=== PATIENT | male | born 1985 | race Caucasian/White ===

== ENCOUNTER 2020-05-04 18:45 | Inpatient (IN) | payer BC, OTHER ==
[~2020-05-04] VITALS: Ht 175.3 cm; Wt 113.4 kg
[2020-05-04] MEDS ORDERED: acetaminophen 325mg tablet PO ONE (20:20)
[2020-05-04 20:27] LABS: BASOPHILS % (AUTO) 0.3 % (0-1); EOSINOPHILS # (AUTO) 0.1 X10'3 (0-0.9); EOSINOPHILS % (AUTO) 0.5 % (0-6); HEMATOCRIT 43.4 % (42.0-52.0); HEMOGLOBIN 14.6 g/dl (14.0-17.9); LYMPHOCYTES # (AUTO) 2.2 X10'3 (1.1-4.8); LYMPHOCYTES % (AUTO) 18.4 % (21-51); MEAN CORPUSCULAR HEMOGLOBIN 31.4 PG (27.0-31.0); MEAN CORPUSCULAR HGB CONC 33.6 g/dL (33.0-36.5); MEAN CORPUSCULAR VOLUME 93.5 FL (78-98); MEAN PLATELET VOLUME 8.6 FL (7.4-10.4); MONOCYTES % (AUTO) 8.2 % (2-12); NEUTROPHILS # (AUTO) 8.8 X10'3 (1.8-7.7); NEUTROPHILS % (AUTO) 72.6 % (42-75); PLATELET COUNT 259 X10'3 (140-440); RED BLOOD COUNT 4.64 X10'6 (4.70-6.10); RED CELL DISTRIBUTION WIDTH 12.5 % (11.5-14.5); WHITE BLOOD COUNT 12.1 X10'3 (4.5-11.0)
[2020-05-04 20:37] LABS: PARTIAL THROMBOPLASTIN TIME 29 SECONDS (22-32)
[2020-05-04 20:39] LABS: ALANINE AMINOTRANSFERASE 92 U/L (12-78); ALBUMIN 3.9 G/DL (3.4-5.0); ALBUMIN/GLOBULIN RATIO 1.1 (1.1-1.5); ALKALINE PHOSPHATASE 63 IU/L (46-116); ANION GAP 8 (8-16); ASPARTATE AMINO TRANSFERASE 316 U/L (10-37); BILIRUBIN,TOTAL 0.8 MG/DL (0.1-1.0); BLOOD UREA NITROGEN 13 MG/DL (7-18); BUN/CREATININE RATIO 10.7 (5.4-32.0); CALCIUM 9.2 MG/DL (8.5-10.1); CHLORIDE 103 MMOL/L (99-107); CREATININE 1.22 MG/DL (0.60-1.10); GLUCOSE 116 MG/DL (70-104); POTASSIUM 4.1 MMOL/L (3.5-5.1); SODIUM 138 MMOL/L (135-145); TOTAL CARBON DIOXIDE 26.9 MMOL/L (24-32); TOTAL PROTEIN 7.3 G/DL (6.4-8.2); eGFR 67 ML/MIN
[2020-05-04 21:22] LABS: TROPONIN I 50.39 NG/ML (0.0-0.05)
[2020-05-04] MEDS ORDERED: aspirin 81mg tab.chew PO ONE (21:30)
[2020-05-04] MEDS ORDERED: nitroGLYCERIN 1gm ointment UD TP ONE (21:30)
[2020-05-04] MEDS ORDERED: LISI-604 PO (21:49)
[2020-05-04] MEDS ORDERED: ATOR80TA PO (21:49)
[2020-05-04] MEDS ORDERED: ASPI-1265 PO (21:49)
[2020-05-04 21:52] LABS: D-DIMER 0.24 MG/L FEU (0-0.50)
[2020-05-04] MEDS ORDERED: heparin 25,000 UNIT/250ml bag 250 ML IV SCH (22:22)
[2020-05-04] MEDS ORDERED: normal saline 1000ML IV soln IVB ONE (22:25)
[2020-05-04] MEDS ORDERED: heparin 10,000 units/1 ML INJ IV ONE ×2 (22:25→22:40)
[2020-05-04] MEDS ORDERED: heparin 10,000 units/1 ML INJ IV PRN (22:40)
[2020-05-04] MEDS ORDERED: morphine 2 MG/ML inj. syringe IV PRN ×2 (22:40)
[2020-05-04] MEDS ORDERED: acetaminophen 325mg tablet PO PRN ×2 (22:40)
[2020-05-04] MEDS ORDERED: HYDROcodone/acetaminophen 5mg/325mg tablet PO PRN (22:40)
[2020-05-04] MEDS ORDERED: magnesium hydroxide 30ml (MOM) UD suspension PO PRN (22:40)
[2020-05-04] MEDS ORDERED: mag hydrox/Alum hydrox/simeth 30ml oral suspension PO PRN (22:40)
[2020-05-04] MEDS ORDERED: ondansetron/PF 4mg/2ml inj IV PRN (22:40)
[2020-05-04] MEDS ORDERED: HYDROcodone/acetaminophen 10/325mg tab PO PRN (22:40)
[2020-05-04 22:52] LABS: C-REACTIVE PROTEIN 2.36 MG/DL (0.0-0.5)
[2020-05-04 23:01] LABS: CREATINE KINASE 2176 U/L (39-308)
[2020-05-04 23:11] LABS: HEMOGLOBIN A1C 5.9 % (4.5-6.2)
[2020-05-04] MEDS ORDERED: LIDOcaine 1% (10mg/ml)w/preservative injection 20ml MDV ONE (23:25)
[2020-05-04] MEDS ORDERED: iohexol 350 MG/ML 50ML vial IV ONE (23:25)
[2020-05-04] MEDS ORDERED: fentaNYL/PF 50MCG/1 ML 2ML syringe ONE (23:25)
[2020-05-04] MEDS ORDERED: heparin 1,000unit/ml 10ml vial 10 ML ONE (23:25)
[2020-05-04] MEDS ORDERED: midazolam 2 mg/2 ml injection ONE (23:25)
[2020-05-04] MEDS ORDERED: nitroGLYCERIN-Tridil 50MG/D5W 250 ML IV ONE (23:26)
[2020-05-04] MEDS ORDERED: iohexol 350 MG/1 ML 200ml bottle ONE (23:26)
[2020-05-04 23:31] LABS: TROPONIN I 49.35 NG/ML (0.0-0.05)
[2020-05-04] MEDS ORDERED: verapamil 2.5 mg/ml inj IV ONE (23:34)
[2020-05-05] VITALS (7 sets, daily range): BP systolic 105–124; BP diastolic 53–63
[2020-05-05] MEDS ORDERED: DOPamine 400mg/D5W 250ml 250 ML IV ONE (00:02)
[2020-05-05] MEDS ORDERED: atropine 0.1mg/ml 10ml syringe ONE (00:03)
[2020-05-05] MEDS ORDERED: clopidogrel 300mg tablet ONE (00:27)
[2020-05-05] MEDS ORDERED: iohexol 350 MG/ML 50ML vial IV ONE (00:28)
[2020-05-05] MEDS ORDERED: ticagrelor 90mg tablet ONE (00:31)
[2020-05-05] MEDS ORDERED: normal saline 1000ml 1,000 ML IV SCH (03:45)
[2020-05-05] MEDS ORDERED: magnesium hydroxide 30ml (MOM) UD suspension PO PRN (03:45)
[2020-05-05] MEDS ORDERED: acetaminophen 325mg tablet PO PRN (03:45)
[2020-05-05] MEDS ORDERED: cyclobenzaprine 10mg tablet PO PRN (03:45)
[2020-05-05] MEDS ORDERED: OXAZEpam 15mg capsule PO PRN (03:45)
[2020-05-05] MEDS ORDERED: HYDROcodone/acetaminophen 10/325mg tab PO PRN ×2 (03:45)
[2020-05-05] MEDS ORDERED: heparin 25,000 UNIT/250ml bag 250 ML IV SCH (06:00)
[2020-05-05] MEDS ORDERED: nitroGLYCERIN 0.4mg SUBLingual tab SL PRN (06:25)
[2020-05-05] MEDS: nitroGLYCERIN 0.4mg SUBLingual tab SL PRN ×2 (06:35→06:46)
[2020-05-05 06:42] LABS: BASOPHILS % (AUTO) 0.1 % (0-1); EOSINOPHILS % (AUTO) 0 % (0-6); HEMOGLOBIN 12.8 g/dl (14.0-17.9); LYMPHOCYTES # (AUTO) 1.5 X10'3 (1.1-4.8); LYMPHOCYTES % (AUTO) 13.1 % (21-51); MEAN CORPUSCULAR HEMOGLOBIN 31.3 PG (27.0-31.0); MEAN CORPUSCULAR HGB CONC 33.7 g/dL (33.0-36.5); MEAN CORPUSCULAR VOLUME 93.1 FL (78-98); MEAN PLATELET VOLUME 8.8 FL (7.4-10.4); MONOCYTES # (AUTO) 0.9 X10'3 (0-0.9); MONOCYTES % (AUTO) 8.1 % (2-12); NEUTROPHILS # (AUTO) 9.1 X10'3 (1.8-7.7); NEUTROPHILS % (AUTO) 78.7 % (42-75); PLATELET COUNT 203 X10'3 (140-440); RED BLOOD COUNT 4.08 X10'6 (4.70-6.10); RED CELL DISTRIBUTION WIDTH 12.6 % (11.5-14.5); WHITE BLOOD COUNT 11.6 X10'3 (4.5-11.0)
--- NOTE | 2020-05-05 06:47 | NUR ---
Patient in room PCU 3012. I have received report from Ariel INMAN and had the opportunity to ask questions and assume patient care. Pt having CP prior to RN arriving, nitro given by shift supervisor melting at [id number]. maintenance technician 3rd shift called Dr. FUENTES who is aware of change in EKG and ordered nitro. Nitro given by this RN x 2. Pt still having CP, feels like he has run a long time and can't catch his breath and his chest is tight. Repeat EKG. Dr. FUENTES called and given update on pt. Morphine Sulfate ordered for CP. No EKG done upon arrival to compare am EKG with. troponin results pending.
[2020-05-05 07:00] LABS: ALBUMIN 3.1 G/DL (3.4-5.0); ANION GAP 10 (8-16); BLOOD UREA NITROGEN 12 MG/DL (7-18); BUN/CREATININE RATIO 9.7 (5.4-32.0); CALCIUM 8.3 MG/DL (8.5-10.1); CHLORIDE 105 MMOL/L (99-107); CHOL/HDL RATIO 2.4 (0.00-4.99); CHOLESTEROL 112 MG/DL (0-200); CREATININE 1.24 MG/DL (0.60-1.10); GLUCOSE 132 MG/DL (70-104); HDL CHOLESTEROL 47 MG/DL (35-60); LDL CHOLESTEROL 45 MG/DL (50-100); POTASSIUM 3.7 MMOL/L (3.5-5.1); SODIUM 139 MMOL/L (135-145); TOTAL CARBON DIOXIDE 24.2 MMOL/L (24-32); TRIGLYCERIDES 143 MG/DL (20-135); eGFR 66 ML/MIN
[2020-05-05] MEDS ORDERED: lisinopril 5mg tablet PO SCH (08:00)
[2020-05-05] MEDS ORDERED: aspirin 81mg tab.chew PO SCH (08:00)
[2020-05-05] MEDS: metoprolol tartrate 25mg tablet PO SCH ×2 (08:00→20:00)
[2020-05-05] MEDS ORDERED: morphine 2 MG/ML inj. syringe IV PRN (08:35)
[2020-05-05 09:42] LABS: TROPONIN I 76.63 NG/ML (0.0-0.05)
--- NOTE | 2020-05-05 09:47 | NUR ---
Critical value called to Dr. FUENTES office. Troponin 76.63. LM with office to ask if additional troponin should be ordered.
[2020-05-05] MEDS ORDERED: KRIL1CAP21 PO (10:44)
[2020-05-05] MEDS ORDERED: ASCO-139 PO (10:44)
[2020-05-05] MEDS: docusate sod 100mg capsule PO SCH ×2 (10:53→20:31)
[2020-05-05] MEDS: lisinopril 5mg tablet PO SCH (10:53)
[2020-05-05] MEDS: ticagrelor 90mg tablet PO SCH ×2 (10:53→20:30)
[2020-05-05] MEDS: aspirin 81mg tab.chew PO SCH (10:53)
[2020-05-05 11:52] LABS: TROPONIN I 47.56 NG/ML (0.0-0.05)
[2020-05-05] MEDS ORDERED: magnesium 2GM in 50ml NS 50 ML IV PRN ×2 (13:30→19:50)
[2020-05-05] MEDS ORDERED: magnesium 4gm in 100ml NS 100 ML IV PRN ×2 (13:30→19:55)
[2020-05-05 14:13] LABS: MAGNESIUM 1.8 MG/DL (1.5-2.4)
[2020-05-05] MEDS: nitroGLYCERIN 0.4mg/hour patch TD SCH (14:50)
[2020-05-05] MEDS: potassium Cl 20 mEq SR tablet PO PRN (16:26)
--- NOTE | 2020-05-05 18:24 | NUR ---
Problems reprioritized. Patient report given, questions answered & plan of care reviewed with El RN.
[2020-05-05] MEDS ORDERED: CefTRIAXone 2gm/D5W 50ml 50 ML IV ONE (18:25)
--- NOTE | 2020-05-05 18:30 | NUR ---
Patient in room PCU 3012. I have received report from Jose INMAN and had the opportunity to ask questions and assume patient care.
[2020-05-05] MEDS ORDERED: magnesium Cl slow-release 64mg tablet PO PRN (19:35)
--- NOTE | 2020-05-05 20:30 | NUR ---
removed nitro patch per orders due to low BP 93/48.
--- NOTE | 2020-05-05 20:45 | NUR ---
LOPRESSOR HELD BP 93/48 HR 84
[2020-05-05] MEDS ORDERED: atorvastatin 20mg tablet PO SCH (21:00)
[2020-05-06 02:00] VITALS: BP 109/70
[2020-05-06 06:00] VITALS: BP 113/67
[2020-05-06 06:15] LABS: BASOPHILS % (AUTO) 0.1 % (0-1); EOSINOPHILS % (AUTO) 0.5 % (0-6); HEMATOCRIT 34.9 % (42.0-52.0); HEMOGLOBIN 11.8 g/dl (14.0-17.9); LYMPHOCYTES # (AUTO) 1.8 X10'3 (1.1-4.8); LYMPHOCYTES % (AUTO) 17.9 % (21-51); MEAN CORPUSCULAR HEMOGLOBIN 31.4 PG (27.0-31.0); MEAN CORPUSCULAR HGB CONC 33.8 g/dL (33.0-36.5); MEAN CORPUSCULAR VOLUME 92.9 FL (78-98); MEAN PLATELET VOLUME 9.1 FL (7.4-10.4); MONOCYTES # (AUTO) 0.9 X10'3 (0-0.9); MONOCYTES % (AUTO) 8.5 % (2-12); NEUTROPHILS # (AUTO) 7.3 X10'3 (1.8-7.7); PLATELET COUNT 190 X10'3 (140-440); RED BLOOD COUNT 3.76 X10'6 (4.70-6.10); RED CELL DISTRIBUTION WIDTH 12.7 % (11.5-14.5); WHITE BLOOD COUNT 10.1 X10'3 (4.5-11.0)
--- NOTE | 2020-05-06 06:22 | NUR ---
Patient in room PCU 3012. I have received report from Hammad INMAN and had the opportunity to ask questions and assume patient care.
[2020-05-06 06:26] LABS: ALBUMIN 2.9 G/DL (3.4-5.0); ANION GAP 8 (8-16); BLOOD UREA NITROGEN 10 MG/DL (7-18); BUN/CREATININE RATIO 8.8 (5.4-32.0); CALCIUM 8.6 MG/DL (8.5-10.1); CHLORIDE 106 MMOL/L (99-107); CREATININE 1.13 MG/DL (0.60-1.10); GLUCOSE 102 MG/DL (70-104); MAGNESIUM 2.2 MG/DL (1.5-2.4); POTASSIUM 3.8 MMOL/L (3.5-5.1); SODIUM 139 MMOL/L (135-145); TOTAL CARBON DIOXIDE 25.3 MMOL/L (24-32); eGFR 73 ML/MIN
--- NOTE | 2020-05-06 06:28 | NUR ---
Problems reprioritized. Patient report given, questions answered & plan of care reviewed with Jose INMAN.
[2020-05-06] MEDS: potassium Cl 20 mEq SR tablet PO PRN ×2 (07:42→12:54)
[2020-05-06] MEDS: metoprolol tartrate 25mg tablet PO SCH (07:43)
[2020-05-06] MEDS: docusate sod 100mg capsule PO SCH (07:43)
[2020-05-06] MEDS: lisinopril 5mg tablet PO SCH (07:43)
[2020-05-06] MEDS: ticagrelor 90mg tablet PO SCH (07:43)
[2020-05-06] MEDS: aspirin 81mg tab.chew PO SCH (07:43)
[2020-05-06] MEDS: nitroGLYCERIN 0.4mg/hour patch TD SCH (07:48)
[2020-05-06 11:00] VITALS: BP 105/56
--- NOTE | 2020-05-06 12:39 | NUR ---
received orders for lasix 20mg once per dr. hogan
[2020-05-06] MEDS ORDERED: furosemide 20 MG/2 ML vial IV ONE (12:40)
[2020-05-06] MEDS ORDERED: TICA90TA PO (12:46)
[2020-05-06] MEDS ORDERED: METO25TA6 PO (12:46)
--- NOTE | 2020-05-06 14:20 | NUR ---
Patient is stable for discharge per md orders, Discharge instructions reviewed w/ pt and all questions answered, new med prescriptions called in to [facility], tele monitor removed and returned, piv dc'ed and clean dry dressing in place, pt discharges to home, wheeled down to lobby with hospital staff to private vehicle w/ , all belongings w/ pt at time of discharge.
[2020-05-07] MEDS ORDERED: clopidogrel 75mg tablet PO SCH (08:00)
== END 2020-05-06 14:10 | disposition home or self-care (01) | DRG 247 ==
LOC: ER 18:45 → ED HOLD 22:37 → UNDOADMIN 23:45 → PCU 3S 05-05 01:28 → ED HOLD 05-05 01:28
PROVIDERS: ADMIT Internal Medicine; ATTEND Internal Medicine
PROC: 4A023N7 Measurement of Cardiac Sampling and Pressure, Left Heart, Percutaneous Approach (ICD-10-PCS; principal; 2020-05-04)
PROC: 027034Z Dilation of Coronary Artery, One Artery with Drug-eluting Intraluminal Device, Percutaneous Approach (ICD-10-PCS; 2020-05-04)
PROC: B2111ZZ Fluoroscopy of Multiple Coronary Arteries using Low Osmolar Contrast (ICD-10-PCS; 2020-05-04)
PROC: B2151ZZ Fluoroscopy of Left Heart using Low Osmolar Contrast (ICD-10-PCS; 2020-05-04)
DX: I21.19 ST elevation (STEMI) myocardial infarction involving other coronary artery of inferior wall (principal); D72.829 Elevated white blood cell count, unspecified; E78.00 Pure hypercholesterolemia, unspecified; E78.5 Hyperlipidemia, unspecified; E86.0 Dehydration; N18.3 Chronic kidney disease, stage 3 (moderate); Z20.828 Contact with and (suspected) exposure to other viral communicable diseases; I12.9 Hypertensive chronic kidney disease with stage 1 through stage 4 chronic kidney disease, or unspecified chronic kidney disease; I25.10 Atherosclerotic heart disease of native coronary artery without angina pectoris; I25.2 Old myocardial infarction; Z79.82 Long term (current) use of aspirin; Z79.899 Other long term (current) drug therapy
CPT/HCPCS: 93306; 93458; 99291; C9600; 36415; 71045; 80048; 80053; 80061; 82550; 83036; 83605; 83735; 83880; 84145; 84484; 85025; 85347; 85379; 85610; 85730; 86140; 87040; 87081; 87635; 93005; 99152; 99153; A4620; A5120; C1725; C1751; C1769; C1874; C1894; G0378; J0461; J0696; J1265; J1644; J1940; J2001; J2250; J3010; J3475; J3490; J7030; Q9967

== ENCOUNTER 2022-12-25 14:19 | Day surgery (SDC) | payer BC ==
[2022-12-19 11:46] LABS: BASOPHILS % (AUTO) 0.5 % (0-1); EOSINOPHILS # (AUTO) 0.1 X10'3 (0-0.9); HEMATOCRIT 41.4 % (42.0-52.0); HEMOGLOBIN 13.5 g/dl (14.0-17.9); LYMPHOCYTES # (AUTO) 2.5 X10'3 (1.1-4.8); LYMPHOCYTES % (AUTO) 45.2 % (21-51); MEAN CORPUSCULAR HEMOGLOBIN 30.1 PG (27.0-31.0); MEAN CORPUSCULAR HGB CONC 32.7 g/dL (33.0-36.5); MEAN CORPUSCULAR VOLUME 92.3 FL (78-98); MEAN PLATELET VOLUME 8.4 FL (7.4-10.4); MONOCYTES # (AUTO) 0.4 X10'3 (0-0.9); MONOCYTES % (AUTO) 6.4 % (2-12); NEUTROPHILS # (AUTO) 2.6 X10'3 (1.8-7.7); NEUTROPHILS % (AUTO) 45.9 % (42-75); PLATELET COUNT 251 X10'3 (140-440); RED BLOOD COUNT 4.49 X10'6 (4.70-6.10); RED CELL DISTRIBUTION WIDTH 12.8 % (11.5-14.5); WHITE BLOOD COUNT 5.6 X10'3 (4.5-11.0)
[2022-12-19 12:01] LABS: APTT 27 SECONDS (22-32)
[2022-12-19 12:04] LABS: ALBUMIN 3.9 G/DL (3.4-5.0); ANION GAP 7 (8-16); BLOOD UREA NITROGEN 16 MG/DL (7-18); CALCIUM 8.9 MG/DL (8.5-10.1); CHLORIDE 106 MMOL/L (99-107); CHOLESTEROL 106 MG/DL (0-200); GLUCOSE 98 MG/DL (70-104); HDL CHOLESTEROL 53 MG/DL (35-60); LDL CHOLESTEROL 44 MG/DL (50-100); POTASSIUM 4.3 MMOL/L (3.5-5.1); SODIUM 140 MMOL/L (135-145); TOTAL CARBON DIOXIDE 27.4 MMOL/L (24-32); TRIGLYCERIDES 74 MG/DL (20-135); eGFR 83 ML/MIN
[2022-12-25] VITALS (7 sets, daily range): BP systolic 129–140; BP diastolic 66–83
[~2022-12-25] VITALS: Ht 170.2 cm; Wt 112.4 kg
[~2022-12-25 14:19] MED LIST: ASCO-139 PO; ASPI-1265 PO; ATOR80TA PO; KRIL1CAP21 PO; LISI5TAB22 PO; LOP25T PO; TICA90TA PO
[2022-12-25] MEDS ORDERED: normal saline 1,000 ML IV SCH (14:40)
[2022-12-25] MEDS ORDERED: diphenhydrAMINE 25mg capsule PO PRN (14:40)
[2022-12-25] MEDS ORDERED: LORazepam 0.5 MG tablet PO PRN (14:40)
[2022-12-25] MEDS ORDERED: ICOS1CAP PO (15:32)
[2022-12-25] MEDS ORDERED: ISOS30TA84 PO (15:32)
[2022-12-25] MEDS ORDERED: DILT-36 PO (15:32)
[2022-12-25] MEDS ORDERED: LORA-641 PO (15:36)
[2022-12-25] MEDS ORDERED: nitroGLYCERIN-Tridil 50MG/D5W 250 ML IV ONE (16:03)
[2022-12-25] MEDS ORDERED: verapamil 2.5 mg/ml inj IV ONE (16:03)
[2022-12-25] MEDS ORDERED: midazolam 1 mg/ML 2ml injection ONE (16:04)
[2022-12-25] MEDS ORDERED: iohexol 350MG/ML 100ml bottle IV ONE ×2 (16:04→19:19)
[2022-12-25] MEDS ORDERED: LIDOcaine 1% (10mg/ml) 2ml vial ONE (16:04)
[2022-12-25] MEDS ORDERED: fentaNYL/PF 50MCG/1 ML 2ML syringe ONE (16:04)
[2022-12-25] MEDS ORDERED: heparin 1,000unit/ml 10ml vial 10 ML ONE ×2 (16:04→19:10)
[2022-12-25] MEDS ORDERED: aspirin 325mg tablet ONE (19:14)
[2022-12-25] MEDS ORDERED: clopidogrel 300mg tablet ONE (19:14)
== END 2022-12-25 21:32 | disposition home or self-care (01) ==
LOC: SSTAY O 14:19
PROVIDERS: ATTEND Student in an Organized Health Care Education/Training Program
DX: R94.39 Abnormal result of other cardiovascular function study (principal); I25.10 Atherosclerotic heart disease of native coronary artery without angina pectoris; I25.2 Old myocardial infarction; I10 Essential (primary) hypertension; E78.5 Hyperlipidemia, unspecified; J45.909 Unspecified asthma, uncomplicated; Z87.891 Personal history of nicotine dependence; Z79.82 Long term (current) use of aspirin; Z79.899 Other long term (current) drug therapy; Z79.01 Long term (current) use of anticoagulants; Z95.5 Presence of coronary angioplasty implant and graft
CPT/HCPCS: 36415; 80048; 80061; 85025; 85610; 85730; 93005; 93458; 99152; 99153; C1725; C1751; C1769; C1874; C1894; C9600; J1644; J2250; J3010; J3490; J7030; Q0163; Q9967; A6258; A6402